=== PATIENT | male | born 1980 | race Caucasian/White ===

== ENCOUNTER → 2023-10-16 07:55 | Outpatient (REF) | payer OTHER, SELFPAY | LOC: RAD 07:55 | PROVIDERS: ATTENDING PHYSICIAN Internal Medicine Gastroenterology; FAMILY PHYSICIAN Nurse Practitioner Adult Health | DX: R74.8 Abnormal levels of other serum enzymes (principal) | CPT/HCPCS: 76700 ==

== ENCOUNTER → 2023-11-13 06:27 | Day surgery (SDC) | payer OTHER, SELFPAY | LOC: GI 06:27 | PROVIDERS: ATTENDING PHYSICIAN Internal Medicine Gastroenterology | DX: Z12.11 Encounter for screening for malignant neoplasm of colon (principal); D12.3 Benign neoplasm of transverse colon; K63.5 Polyp of colon; K57.30 Diverticulosis of large intestine without perforation or abscess without bleeding | CPT/HCPCS: 45385; 45380; 88305 ==

== ENCOUNTER 2025-02-09 02:28 | Emergency (ER) | payer OTHER, SELFPAY ==
[2025-02-09 02:35] VITALS: BP 131/92
[2025-02-09 02:52] VITALS: BP 133/84
[2025-02-09 02:54] VITALS: BMI 25.4
[2025-02-09 03:00] VITALS: BP 125/79
--- NOTE | 2025-02-09 03:47 | ED.GENMED ---
History of Present Illness
General
Chief Complaint: DVT/Possible Blood Clot
Source: patient
Exam Limitations: none
Time Seen by Provider: 02/09/25 03:08
Nursing documentation reviewed up to this point in time: agreed with
History of Present Illness
History of Present Illness:
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 Started on Xarelto at that time and has been maintained on Xarelto since that initial DVT.
She presents with 1 to 2-day history of right plantar foot pain without insightful injury. Right plantar foot pain is worse with ambulation. He denies swelling, denies weakness or numbness, denies leg nor calf pain but is concerned as he noted
similar left plantar foot pain prior to onset of left lower extremity DVT back in 2021.
No history of inflammatory arthritis nor osteoarthritis. He has not had a fever nor chills. No chest pain no cough no shortness of breath.
He has not been taking anything for discomfort.
He has been compliant with daily Xarelto 10 mg.
Past History
Past History
ED Past Medical History: Hypercholesterolemia (Diet controlled) and Other (DVT left lower extremity March 2022-chronically maintained on Xarelto)
ED Past Surgical History: Urological (Vasectomy)
Social History
Tobacco: Non-smoker
Alcohol: Occasional (Rare alcohol use)
Drug: None
Personal:
Living: with family
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
Family History
Family History: Other (Noncontributory)
Phy Exam
Physical Exam
Physical Exam:
GENERAL: 44-year-old gentleman appears his stated age, awake and alert, pleasant, appears in no acute distress.
EYE: . anicteric
NECK: Supple, nontender, no meningismus, no significant adenopathy.
ENT: oral mucosa is moist. No rhinorrhea.
CARDIAC: Regular rate and rhythm. no murmur.
LUNGS: Clear breath sounds bilaterally, no acute respiratory distress, no wheezes/rales/rhonchi
ABDOMEN: Soft, nondistended, without focal tenderness
NEUROLOGICAL: Alert and oriented x3, no focal neuro deficits.
SKIN: Warm and dry, normal color, skin intact. No rash.
MUSCULOSKELETAL: No C/C/E. peripheral pulses are full and equal b/l. There is mild tenderness to palpation right plantar foot at mid arch region. There is no soft tissue swelling, no erythema, no ecchymosis. No tenderness to the ankle nor lower
leg. There is no calf tenderness. No swelling, no palpable cords.
PSYCH: Normal and appropriate interaction.
Course
Orders/Labs/Results
Orders:
Orders
02/09/25 02:50
US Legs, Right [US Periph Venous LOWER Ext RT] Urgent
Comment: Pain in foot similar to start of previous DVT
Reason For Exam: Hx L DVT
Vital Signs
Initial and Last Documented VS:
Initial Vital Signs
Temp Pulse Resp BP Pulse Ox
97.8 F 72 14 131/92 100
02/09/25 02:35 02/09/25 02:35 02/09/25 02:35 02/09/25 02:35 02/09/25 02:35
Last Documented Vital Signs
Temp Pulse Resp BP Pulse Ox
97.8 F 68 16 125/79 97
02/09/25 02:35 02/09/25 04:22 02/09/25 04:22 02/09/25 03:00 02/09/25 04:20
MDM/Problems Addressed
Differential Diagnosis Includes:
Concern for tendinopathy right plantar foot. Nothing in exam to suggest inflammatory arthropathy such as gout/pseudogout. Nothing in exam to suggest DVT however with patient history of similar plantar foot pain prodromal to DVT left lower
extremity will check venous Doppler right lower extremity.
Chronic conditions affecting care: Other (History of DVT left lower extremity 2021-maintained on Xarelto.)
*Radiology
Radiology exam reviewed: other (Venous Doppler right lower extremity negative for DVT.)
*Pulse Oximetry
Patient hypoxic: no (100% room air)
*[employer] Interpretation
Rate: normal
Interpretation: normal
Rhythm: sinus
*Critical Care Note
Total Time (30-74mins, 75-104mins- exclusive of procedures): Not Applicable
Update Note
Update Note:
Ultrasound is negative for DVT.
I suspect mild plantar fasciitis. Recommend Tylenol, local heat, stretching.
Continue Xarelto 10 mg daily.
Prompt follow-up with PCP for recheck.
ED Attending Note
-
Portions of this chart may have been created with voice recognition software.� Occasional wrong word or��sound alike� substitutions may have occurred due to the inherent limitations of voice recognition software.
Discharge Plan
Departure
Patient Disposition: Home (Routine Discharge)
Date of Disposition: 02/09/25
Time of Disposition: 04:26
Patient with high blood pressure during this ER visit?: No
Condition: Good
Discharge Problem:
Arch pain of right foot
Instructions: Metatarsalgia, Exercises for plantar fasciitis
Referrals:
UNKNOWN - PT DOES,NOT KNOW [Family Provider]
Activity Restrictions/Additional Instructions:
Continue Xarelto 10 mg daily.
You may take Tylenol as needed for pain.
Try local heat to your foot, gentle massage to arch.
Follow-up with your primary care physician for recheck.
Interventions
Interventions:
*Risk Screen - Suicide Last Done: 02/09/25 02:35
*General Assessment Last Done: 02/09/25 02:55
*Neglect/Abuse Screening Last Done: 02/09/25 02:55
*ED- Fall Risk Assessment Last Done: 02/09/25 02:55
*ED COVID-19 Vaccine History Last Done: 02/09/25 02:55
ED- Cardiac Assessment Last Done: 02/09/25 04:20
ED- Pulmonary Assessment Last Done: 02/09/25 04:20
ED-Peripheral Vascular Assessment Last Done: 02/09/25 04:20
ED-Skin Assessment Last Done: 02/09/25 04:20
Discharge Date and Time
Print Language: QATARI
== END 2025-02-09 04:35 | disposition home or self-care (01) ==
LOC: EMR 02:28
PROVIDERS: EMERGENCY PHYSICIAN Emergency Medicine
DX: M79.671 Pain in right foot (principal); E78.00 Pure hypercholesterolemia, unspecified; Z86.718 Personal history of other venous thrombosis and embolism; Z79.01 Long term (current) use of anticoagulants
CPT/HCPCS: 99284; 93971